=== PATIENT | female | born 1940 | race Caucasian/White ===

== ENCOUNTER 2017-05-31 11:33 | Emergency (ER) | payer OTHER, MEDICARE ==
[2017-05-31 11:47] VITALS: TEMP 98.4
[2017-05-31] MEDS ORDERED: NS 1,000 ML IV ONE (12:20)
--- NOTE | 2017-05-31 12:23 | EDPHY ---
H & P Stated Complaint: Nausea, abdo pain, diarrhea and rash - Possible reaction to chemo med. Time Seen by Provider: 05/31/17 12:09 HPI/ROS: CHIEF COMPLAINT: Weakness, loss of appetite, history of metastatic breast cancer HISTORY OF PRESENT ILLNESS: The patient presents to the ED with worsening weakness, loss of appetite, intermittent diarrhea and constipation. The patient is currently receiving oral chemotherapy for metastatic breast cancer. The patient is on Atenafor and Examestone. Additionally she takes losartan, Synthroid and Prilosec. The patient has been on her oral chemotherapy for approximately the past 6 weeks. She recently return to [place] from [place] where she did not have medical care. She reportedly had a fever last night to 102 degrees. The patient denies acute cough. She complains of generalized weakness and loss of appetite as her primary presenting symptom today. REVIEW OF SYSTEMS: A comprehensive 10 point review of systems is otherwise negative aside from elements mentioned in the history of present illness. Source: Patient Exam Limitations: No limitations - Personal History Current Tetanus Diphtheria and Acellular Pertussis (TDAP): Unsure - Medical/Surgical History Hx Asthma: No Hx Chronic Respiratory Disease: No Hx Diabetes: No Hx Cardiac Disease: No Hx Renal Disease: No Hx Cirrhosis: No Hx Alcoholism: No Hx HIV/AIDS: No Hx Splenectomy or Spleen Trauma: No Other PMH: HTN, Hysterectomy, breast augmentation - Breast CA - Social History Smoking Status: Former smoker - Physical Exam Exam: General Appearance: Alert, no distress Eyes: Pupils equal and round no pallor or injection ENT, Mouth: Mucous membranes moist Respiratory: There are no retractions, lungs are clear to auscultation Cardiovascular: Regular rate and rhythm Gastrointestinal: Abdomen is soft and nontender, no masses, bowel sounds normal Neurological: A&O, normal motor function, normal sensory exam, normal cranial nerves Skin: Warm and dry, no rashes Musculoskeletal: Neck is supple nontender Extremities: symmetrical, full range of motion Constitutional: Initial Vital Signs Temperature (C) 36.9 C 05/31/17 11:42 Heart Rate 118 H 05/31/17 11:42 Respiratory Rate 18 05/31/17 11:42 Blood Pressure 128/82 H 05/31/17 11:42 O2 Sat (%) 92 05/31/17 11:42 O2 Delivery Mode Room Air Allergies/Adverse Reactions: iopamidol [From Isovue-M] Allergy (Severe, Verified 04/03/15 18:04) Anaphylaxis lisinopril [Lisinopril] Allergy (Severe, Verified 04/03/15 18:04) Swelling/neck,face,throat azithromycin [From Zithromax Z-Cristi] Allergy (Intermediate, Verified 04/03/15 18: 04) Rash codeine [Codeine] Allergy (Intermediate, Verified 04/03/15 18:04) Vomiting erythromycin base [Erythromycin Base] Allergy (Intermediate, Verified 04/03/15 18:04) Other-Enter Comments meperidine HCl [From Demerol] Allergy (Intermediate, Verified 04/03/15 18:04) Vomiting Penicillins Allergy (Intermediate, Verified 04/03/15 18:04) Hives Home Medications: Medication Instructions Recorded Ascorbic Acid [Vitamin C 500 mg 1,000 mg PO DAILY 06/04/14 (*)] Aspirin [Aspirin 81mg (*)] 81 mg PO DAILY 06/04/14 Fexofenadine HCl [Brittanie Allergy] 60 mg PO DAILY PRN 06/04/14 Herbals/Supplements -Info Only 1 ea PO DAILY 06/04/14 Levothyroxine [Synthroid 112 mcg 112 mcg PO DAILY06 06/04/14 (*)] Magnesium Oxide [Magnesium Oxide 200 mg PO DAILY 06/04/14 400 mg (*)] Multivitamins [Multivitamin (*)] 1 each PO DAILY 06/04/14 [place]-3 Fatty Acids [Fish Oil 1000 1,000 mg PO DAILY 06/04/14 mg (*)] Calcium Carbonate [Oyster Shell 500 mg PO DAILY 04/03/15 Calcium 500 mg (*)] Cholecalciferol (Vitamin D3) 400 unit PO DAILY 04/03/15 [Delta D3] Ibuprofen [Motrin (*)] 600 mg PO TID PRN 04/03/15 Letrozole [Femara 2.5 mg (*)] 2.5 mg PO DAILY 04/03/15 Losartan Potassium [Cozaar] 100 mg PO DAILY 04/03/15 Ondansetron Odt [Zofran Odt] 4 mg PO Q4PRN PRN #20 tab 05/31/17 Medical Decision Making ED Course/Re-evaluation: I reviewed the patient's past medical records. She presents to the ED with symptoms consistent with dehydration with fatigue and loss of appetite. The patient did report a fever yesterday to 102 degrees. She is afebrile in the emergency department today. The patient's vital signs are stable. She is not hypoxemic. She has no acute respiratory complaints. The patient's CBC is within normal limits without evidence of neutropenia. The patient did have blood cultures x2 obtained. She was noted to have mild hyponatremia consistent with her clinical dehydration. The patient had an IV established. She received 2 L of normal saline and 4 mg of IV Zofran. I re-evaluated the patient at 1:50 p.m.. She is feeling better. We are still awaiting urinalysis. The patient's venous lactate is normal. Patient's urinalysis is obtained demonstrates no evidence of an infection. I spoke with her oncologist at the [facility]. He recommends having her withhold her oral chemo medications. They will follow up with her later this week. The patient will be discharged home with customary aftercare instructions and return precautions. Differential Diagnosis: Differential diagnosis considered includes neutropenic fever, dehydration, metabolic abnormality, urinary tract infection, medication side effect - Data Points Laboratory Results: Laboratory Results 05/31/17 12:35 05/31/17 12:35 05/31/17 05/31/17 05/31/17 14:20 12:35 12:35 WBC 6.09 10^3/uL 10^3/uL (3.80-9.50) RBC 4.74 10^6/uL 10^6/uL (4.18-5.33) Hgb 14.8 g/dL g/dL (12.6-16.3) Hct 42.1 % % (38.0-47.0) MCV 88.8 fL fL (81.5-99.8) MCH 31.2 pg pg (27.9-34.1) MCHC 35.2 g/dL g/dL (32.4-36.7) RDW 12.8 % % (11.5-15.2) Plt Count 222 10^3/uL 10^3/uL (150-400) MPV 10.0 fL fL (8.7-11.7) Neut % (Auto) 63.3 % % (39.3-74.2) Lymph % (Auto) 19.5 % % (15.0-45.0) [place] % (Auto) 11.5 % % (4.5-13.0) Eos % (Auto) 4.4 % % (0.6-7.6) Baso % (Auto) 1.1 % % (0.3-1.7) Nucleat RBC Rel Count 0.0 % % (0.0-0.2) Absolute Neuts (auto) 3.85 10^3/uL 10^3/uL (1.70-6.50) Absolute Lymphs (auto) 1.19 10^3/uL 10^3/uL (1.00-3.00) Absolute Monos (auto) 0.70 10^3/uL 10^3/uL (0.30-0.80) Absolute Eos (auto) 0.27 10^3/uL 10^3/uL (0.03-0.40) Absolute Basos (auto) 0.07 10^3/uL 10^3/uL (0.02-0.10) Absolute Nucleated RBC 0.00 10^3/uL 10^3/uL (0-0.01) Immature Gran % 0.2 % % (0.0-1.1) Immature Gran # 0.01 10^3/uL 10^3/uL (0.00-0.10) VBG Lactic Acid Sodium 128 mEq/L L mEq/L (134-144) Potassium 3.6 mEq/L mEq/L (3.5-5.2) Chloride 94 mEq/L L mEq/L (97-110) Carbon Dioxide 26 mEq/l mEq/l (22-31) Anion Gap 8 mEq/L mEq/L (8-16) BUN 11 mg/dL mg/dL (7-23) Creatinine 1.0 mg/dL mg/dL (0.6-1.0) Estimated GFR 54 Glucose 118 mg/dL H mg/dL (70-100) Calcium 9.4 mg/dL mg/dL (8.5-10.4) Total Bilirubin 1.0 mg/dL mg/dL (0.1-1.4) Conjugated Bilirubin 0.4 mg/dL mg/dL (0.0-0.5) Unconjugated Bilirubin 0.6 mg/dL mg/dL (0.0-1.1) AST 81 IU/L H IU/L (14-46) ALT 94 IU/L H IU/L (9-52) Alkaline Phosphatase 95 IU/L IU/L (38-126) Total Protein 6.2 g/dL L g/dL (6.3-8.2) Albumin 3.3 g/dL L g/dL (3.5-5.0) Urine RBC 25-50 /hpf H /hpf (0-3) Urine WBC 1-3 /hpf /hpf (0-3) Ur Epithelial Cells NONE SEEN /lpf /lpf (NONE-1+) Urine Mucus TRACE /lpf /lpf (NONE-1+) 05/31/17 12:33 WBC RBC Hgb Hct MCV MCH MCHC RDW Plt Count MPV Neut % (Auto) Lymph % (Auto) [place] % (Auto) Eos % (Auto) Baso % (Auto) Nucleat RBC Rel Count Absolute Neuts (auto) Absolute Lymphs (auto) Absolute Monos (auto) Absolute Eos (auto) Absolute Basos (auto) Absolute Nucleated RBC Immature Gran % Immature Gran # VBG Lactic Acid 1.4 mmol/L mmol/L (0.7-2.1) Sodium Potassium Chloride Carbon Dioxide Anion Gap BUN Creatinine Estimated GFR Glucose Calcium Total Bilirubin Conjugated Bilirubin Unconjugated Bilirubin AST ALT Alkaline Phosphatase Total Protein Albumin Urine RBC Urine WBC Ur Epithelial Cells Urine Mucus Medications Given: Discontinued Medications Sodium Chloride (Ns) 1,000 mls @ 0 mls/hr IV ONCE ONE; Wide Open PRN Reason: Protocol Stop: 05/31/17 12:21 Last Admin: 05/31/17 12:40 Dose: 1,000 mls Ondansetron HCl (Zofran) 4 mg IVP EDNOW ONE Stop: 05/31/17 12:36 Last Admin: 05/31/17 12:40 Dose: 4 mg Departure - Departure Disposition: Home, Routine, Self-Care Clinical Impression: BREAST CANCER, BILATERAL, Hyponatremia, Dehydration Condition: Good Instructions: Dehydration (ED) Additional Instructions: 1. Zofran as needed for nausea. 2. Return to the ED for any worsening symptoms, high fever, acute pain or other concerns. 3. Your oncologist does recommend holding her oral chemotherapy medications. Please contact their office to discuss resuming these medications. Referrals: Michael Pickens MD [Primary Care Provider] - As per Instructions
[2017-05-31] MEDS ORDERED: ONDANSETRON 4 MG/2 ML VIAL IVP ONE (12:35)
[2017-05-31 12:52] LABS: % IMMATURE GRANULYOCYTES 0.2 % (0.0-1.1); ABSOLUTE IMMATURE GRANULOCYTES 0.01 10^3/uL (0.00-0.10); ADD DIFF? NO; ADD MORPH? NO; ADD SCAN? NO; ATYPICAL LYMPHOCYTE FLAG 0 (0-99); FRAGMENT RBC FLAG 0 (0-99); HEMATOCRIT 42.1 % (38.0-47.0); HEMOGLOBIN 14.8 g/dL (12.6-16.3); LEFT SHIFT FLG 0 (0-99); LIPEMIA HEMOLYSIS FLAG 90 (0-99); MEAN CELL HEMOGLOBIN 31.2 pg (27.9-34.1); MEAN CELL HEMOGLOBIN CONCENTR. 35.2 g/dL (32.4-36.7); MEAN CELL VOLUME 88.8 fL (81.5-99.8); PLATELET CLUMPS FLAG 0 (0-99); PLATELET COUNT 222 10^3/uL (150-400); RED BLOOD CELL COUNT 4.74 10^6/uL (4.18-5.33); RED CELL DISTRIBUTION WIDTH 12.8 % (11.5-15.2)
[2017-05-31 13:14] LABS: ALANINE AMINOTRANSFERASE 94 IU/L (9-52); ALBUMIN 3.3 g/dL (3.5-5.0); ALKALINE PHOSPHATASE 95 IU/L (38-126); ANION GAP 8 mEq/L (8-16); ASPARTATE AMINOTRANSFERASE 81 IU/L (14-46); BILIRUBIN-CONJUGATED 0.4 mg/dL (0.0-0.5); BILIRUBIN-UNCONJUGATED 0.6 mg/dL (0.0-1.1); CALCIUM 9.4 mg/dL (8.5-10.4); CARBON DIOXIDE 26 mEq/l (22-31); CHLORIDE 94 mEq/L (97-110); GLOMERULAR FILTRATION RATE 54; GLUCOSE 118 mg/dL (70-100); POTASSIUM 3.6 mEq/L (3.5-5.2); SODIUM 128 mEq/L (134-144); TOTAL PROTEIN 6.2 g/dL (6.3-8.2)
[2017-05-31 14:32] LABS: MUCUS TRACE /lpf (NONE-1+); RBC,URINE 25-50 /hpf (0-3)
[2017-05-31 15:24] VITALS: BP 130/60; PULSE 107; RESP 20; O2SAT 88
== END 2017-05-31 15:23 | disposition home or self-care (01) ==
DX: E87.1 Hypo-osmolality and hyponatremia (principal); E86.0 Dehydration; E86.9 Volume depletion, unspecified; I10 Essential (primary) hypertension; Z79.82 Long term (current) use of aspirin; Z85.3 Personal history of malignant neoplasm of breast; Z87.891 Personal history of nicotine dependence
CPT/HCPCS: 96374; 99284; J2405

== ENCOUNTER 2017-06-07 22:53 | Observation (INO) | payer OTHER, MEDICARE ==
[2017-06-07 23:42] LABS: % IMMATURE GRANULYOCYTES 0.9 % (0.0-1.1); ABSOLUTE IMMATURE GRANULOCYTES 0.06 10^3/uL (0.00-0.10); ABSOLUTE NRBC COUNT 0.11 10^3/uL (0-0.01); ADD DIFF? NO; ADD MORPH? YES; ADD SCAN? NO; ATYPICAL LYMPHOCYTE FLAG 0 (0-99); FRAGMENT RBC FLAG 0 (0-99); HEMATOCRIT 36.2 % (38.0-47.0); HEMOGLOBIN 12.9 g/dL (12.6-16.3); LEFT SHIFT FLG 0 (0-99); LIPEMIA HEMOLYSIS FLAG 90 (0-99); MEAN CELL HEMOGLOBIN 31.1 pg (27.9-34.1); MEAN CELL HEMOGLOBIN CONCENTR. 35.6 g/dL (32.4-36.7); MEAN CELL VOLUME 87.2 fL (81.5-99.8); MEAN PLATELET VOLUME 9.8 fL (8.7-11.7); PLATELET CLUMPS FLAG 0 (0-99); PLATELET COUNT 289 10^3/uL (150-400); RED BLOOD CELL COUNT 4.15 10^6/uL (4.18-5.33); RED CELL DISTRIBUTION WIDTH 13.2 % (11.5-15.2)
--- NOTE | 2017-06-07 23:42 | CPEKG ---
Heart Rate: 97 RR Interval: 619 P-R Interval: 144 QRSD Interval: 86 QT Interval: 348 QTC Interval: 442 P [place]: 77 QRS [place]: 55 T Wave [place]: 39 EKG Severity - BORDERLINE ECG - EKG Impression: SINUS RHYTHM EKG Impression: LOW VOLTAGE THROUGHOUT EKG Impression: BORDERLINE T ABNORMALITIES, ANTERIOR LEADS Electronically Signed By: Simeon Bowens 08-Jun-2017 06:24:23
[2017-06-07 23:45] LABS: NRBC-AUTO% 1.7 % (0.0-0.2)
[2017-06-07 23:55] LABS: ALANINE AMINOTRANSFERASE 64 IU/L (9-52); ALKALINE PHOSPHATASE 98 IU/L (38-126); ANION GAP 10 mEq/L (8-16); ASPARTATE AMINOTRANSFERASE 53 IU/L (14-46); BILIRUBIN,TOTAL 1.2 mg/dL (0.1-1.4); CALCIUM 8.4 mg/dL (8.5-10.4); CARBON DIOXIDE 27 mEq/l (22-31); CHLORIDE 91 mEq/L (97-110); CREATININE 0.9 mg/dL (0.6-1.0); GLOMERULAR FILTRATION RATE > 60; GLUCOSE 132 mg/dL (70-100); POTASSIUM 3.4 mEq/L (3.5-5.2); SODIUM 128 mEq/L (134-144); TOTAL PROTEIN 5.2 g/dL (6.3-8.2)
[2017-06-08 00:06] LABS: TROPONIN I 0.064 ng/mL (0.000-0.034)
[2017-06-08 00:10] LABS: PLATELET ESTIMATE ADEQUATE (ADEQ); POLYCHROMASIA 1+
--- NOTE | 2017-06-08 00:14 | EDPHY ---
H & P Stated Complaint: SOB at night and weakness r Time Seen by Provider: 06/07/17 23:10 HPI/ROS: Chief Complaint: Fatigue, shortness of breath HPI: 76-year-old woman with metastatic breast cancer currently under treatment at the [facility]. Patient is presenting with fatigue for the last 3 weeks. Also having significant weakness and shortness of breath for the last week or so. She was seen in the emergency department last week. At that time she has diagnosed with some dehydration is also thought that she could be having some reaction to her medication. She was taken off of the Afinitor that is prescribed by her oncologist. She is continuing to take the Exomestane. The patient was seen by her oncologist last week. She is continuing to have worsening fatigue and is now having shortness of breath primarily at night. She has extreme fatigue walking to the bathroom and requires assistance getting back to bed. ROS: 10 point Review of Systems is negative except as noted in the HPI. PMH: Metastatic breast cancer, hypertension, hypothyroidism Social History: No smoking, rare alcohol, no recreational drug use Family History: non-contributory Physical Exam: Gen: Awake, Alert, No Distress HEENT: Nose: no rhinorrhea Eyes: PERRLA, EOMI Mouth: Moist mucosa Neck: Supple, no JVD Chest: nontender, lungs clear to auscultation Heart: S1, S2 normal, no murmur Abd: Soft, non-tender, no guarding Back: no CVA tenderness, no midline tenderness Ext: no edema, non-tender Skin: no rash Neuro: CN II-XII intact, Sensation grossly intact, Strength 5/5 in bilateral upper and lower extremities - Personal History Current Tetanus/Diphtheria Vaccine: Yes Current Tetanus Diphtheria and Acellular Pertussis (TDAP): Yes - Medical/Surgical History Hx Asthma: No Hx Chronic Respiratory Disease: No Hx Diabetes: No Hx Cardiac Disease: No Hx Renal Disease: No Hx Cirrhosis: No Hx Alcoholism: No Hx HIV/AIDS: No Hx Splenectomy or Spleen Trauma: No Other PMH: HTN, Hysterectomy, breast augmentation - Breast CA-mets to liver and bones, lymphedema - Social History Smoking Status: Former smoker Constitutional: Initial Vital Signs Temperature (C) 37.9 C 06/07/17 22:57 Heart Rate 110 H 06/07/17 22:57 Respiratory Rate 18 06/07/17 22:57 Blood Pressure 128/70 H 06/07/17 22:57 O2 Sat (%) 90 L 06/07/17 22:57 O2 Delivery Mode Room Air Allergies/Adverse Reactions: iopamidol [From Isovue-M] Allergy (Severe, Verified 06/07/17 23:01) Anaphylaxis lisinopril [Lisinopril] Allergy (Severe, Verified 06/07/17 23:01) Swelling/neck,face,throat azithromycin [From Zithromax Z-Cristi] Allergy (Intermediate, Verified 06/07/17 23: 01) Rash codeine [Codeine] Allergy (Intermediate, Verified 06/07/17 23:01) Vomiting erythromycin base [Erythromycin Base] Allergy (Intermediate, Verified 06/07/17 23:01) Other-Enter Comments meperidine HCl [From Demerol] Allergy (Intermediate, Verified 06/07/17 23:01) Vomiting Penicillins Allergy (Intermediate, Verified 06/07/17 23:01) Hives Iodine and Iodide Containing Produc Allergy (Verified 06/07/17 23:02) Home Medications: Medication Instructions Recorded Ascorbic Acid [Vitamin C 500 mg 1,000 mg PO DAILY 06/04/14 (*)] Aspirin [Aspirin 81mg (*)] 81 mg PO DAILY 06/04/14 Fexofenadine HCl [Brittanie Allergy] 60 mg PO DAILY PRN 06/04/14 Herbals/Supplements -Info Only 1 ea PO DAILY 06/04/14 Levothyroxine [Synthroid 112 mcg 112 mcg PO DAILY06 06/04/14 (*)] Magnesium Oxide [Magnesium Oxide 200 mg PO DAILY 06/04/14 400 mg (*)] Multivitamins [Multivitamin (*)] 1 each PO DAILY 06/04/14 [place]-3 Fatty Acids [Fish Oil 1000 1,000 mg PO DAILY 06/04/14 mg (*)] Calcium Carbonate [Oyster Shell 500 mg PO DAILY 04/03/15 Calcium 500 mg (*)] Cholecalciferol (Vitamin D3) 400 unit PO DAILY 04/03/15 [Delta D3] Ibuprofen [Motrin (*)] 600 mg PO TID PRN 04/03/15 Letrozole [Femara 2.5 mg (*)] 2.5 mg PO DAILY 04/03/15 Losartan Potassium [Cozaar] 100 mg PO DAILY 04/03/15 Ondansetron Odt [Zofran Odt] 4 mg PO Q4PRN PRN #20 tab 05/31/17 Medical Decision Making - Diagnostics EKG Interpretation: ECG time 11:40 p.m.. Sinus rhythm with a rate of 97, normal axis, low-voltage throat, normal intervals, she has T-wave inversions in V2 and V3. These are new compared to an ECG from 04/03/2015. ED Course/Re-evaluation: Patient noted to have a new ECG changes with T-wave inversions in V2 and V3. She also has an elevated D-dimer. I have discussed CT scanning of her chest. She states she has allergy to IV contrast dye for both CT and MRI which produces hives. She is refusing CT scan at this time. I have ordered a V/Q scan but has been told that this can only be obtained during daylight hours. Will plan to give her anticoagulation and admit overnight. Hospitalist has been paged. Troponin back and is now elevated. Discussed with Dr. Bautista, hospitalist. Will give a shot of Lovenox now. Will order ultrasounds of her legs now. Admit with plan for V/Q scan in the morning. - Data Points Laboratory Results: Laboratory Results 06/07/17 23:33 06/07/17 23:33 06/07/17 06/07/17 06/07/17 23:33 23:33 23:33 WBC 6.51 10^3/uL 10^3/uL (3.80-9.50) RBC 4.15 10^6/uL L 10^6/uL (4.18-5.33) Hgb 12.9 g/dL g/dL (12.6-16.3) Hct 36.2 % L % (38.0-47.0) MCV 87.2 fL fL (81.5-99.8) MCH 31.1 pg pg (27.9-34.1) MCHC 35.6 g/dL g/dL (32.4-36.7) RDW 13.2 % % (11.5-15.2) Plt Count 289 10^3/uL 10^3/uL (150-400) MPV 9.8 fL fL (8.7-11.7) Neut % (Auto) 60.5 % % (39.3-74.2) Lymph % (Auto) 18.6 % % (15.0-45.0) [place] % (Auto) 13.5 % H % (4.5-13.0) Eos % (Auto) 6.0 % % (0.6-7.6) Baso % (Auto) 0.5 % % (0.3-1.7) Nucleat RBC Rel Count 1.7 % H % (0.0-0.2) Absolute Neuts (auto) 3.94 10^3/uL 10^3/uL (1.70-6.50) Absolute Lymphs (auto) 1.21 10^3/uL 10^3/uL (1.00-3.00) Absolute Monos (auto) 0.88 10^3/uL H 10^3/uL (0.30-0.80) Absolute Eos (auto) 0.39 10^3/uL 10^3/uL (0.03-0.40) Absolute Basos (auto) 0.03 10^3/uL 10^3/uL (0.02-0.10) Absolute Nucleated RBC 0.11 10^3/uL H 10^3/uL (0-0.01) Immature Gran % 0.9 % % (0.0-1.1) Immature Gran # 0.06 10^3/uL 10^3/uL (0.00-0.10) Platelet Estimate ADEQUATE (ADEQ) Polychromasia 1+ H Smear Review By Pending D-Dimer 3.84 ug/mLFEU H ug/mLFEU (0.00-0.50) Sodium 128 mEq/L L mEq/L (134-144) Potassium 3.4 mEq/L L mEq/L (3.5-5.2) Chloride 91 mEq/L L mEq/L (97-110) Carbon Dioxide 27 mEq/l mEq/l (22-31) Anion Gap 10 mEq/L mEq/L (8-16) BUN 6 mg/dL L mg/dL (7-23) Creatinine 0.9 mg/dL mg/dL (0.6-1.0) Estimated GFR > 60 Glucose 132 mg/dL H mg/dL (70-100) Calcium 8.4 mg/dL L mg/dL (8.5-10.4) Total Bilirubin 1.2 mg/dL mg/dL (0.1-1.4) AST 53 IU/L H IU/L (14-46) ALT 64 IU/L H IU/L (9-52) Alkaline Phosphatase 98 IU/L IU/L (38-126) Troponin I 0.064 ng/mL H ng/mL (0.000-0.034) Total Protein 5.2 g/dL L g/dL (6.3-8.2) Albumin 3.0 g/dL L g/dL (3.5-5.0) Lipase 81 IU/L IU/L (23-300) Departure - Departure Disposition: [facility] Inpatient Acute Clinical Impression: Shortness of breath Condition: Fair Referrals: Michael Pickens MD [Primary Care Provider] - As per Instructions
[2017-06-08] MEDS ORDERED: ACETAMINOPHEN 325 MG TAB PO PRN (00:21)
[2017-06-08] MEDS ORDERED: ONDANSETRON 4 MG/2 ML VIAL IVP PRN (00:21)
[2017-06-08] MEDS ORDERED: ONDANSETRON DISINTEGRATING 4 MG TAB PO PRN ×2 (00:21→07:58)
[2017-06-08] MEDS ORDERED: ENOXAPARIN 80 MG/0.8 ML SYR SC ONE (00:28)
[2017-06-08] MEDS ORDERED: NS 500 ML IV ONE (01:31)
[2017-06-08] MEDS ORDERED: ALBUTEROL 3 ML DEYVIAL IH PRN (01:37)
--- NOTE | 2017-06-08 02:37 | PDGENHP ---
History and Physical - Chief Complaint Fatigue - History of Present Illness 76 yo F w/ metastatic breast CA, hypothyroid, and HTN presents with fatigue and SOB. Patient states she started two new medications for breast CA (Afinitor and Exemestane) about 2 months ago. One month ago she developed fatigue and stomach pain. As a result, the Afinitor was stopped 1 week ago as this was felt to be a drug side effect. During the last week she has continued to feel fatigued and also has began to notice intermittent shortness of breath improved by albuterol. It was the progressive fatigue that led her to come to the ED today. She denies chest pain, fevers, and chills. She has continued to have poor PO intake. History Information - Allergies/Home Medication List Allergies/Adverse Reactions: iopamidol [From Isovue-M] Allergy (Severe, Verified 06/07/17 23:01) Anaphylaxis lisinopril [Lisinopril] Allergy (Severe, Verified 06/07/17 23:01) Swelling/neck,face,throat azithromycin [From Zithromax Z-Cristi] Allergy (Intermediate, Verified 06/07/17 23: 01) Rash codeine [Codeine] Allergy (Intermediate, Verified 06/07/17 23:01) Vomiting erythromycin base [Erythromycin Base] Allergy (Intermediate, Verified 06/07/17 23:01) Other-Enter Comments meperidine HCl [From Demerol] Allergy (Intermediate, Verified 06/07/17 23:01) Vomiting Penicillins Allergy (Intermediate, Verified 06/07/17 23:01) Hives Iodine and Iodide Containing Produc Allergy (Verified 06/07/17 23:02) Home Medications: Ascorbic Acid [Vitamin C 500 mg (*)] 1,000 mg PO DAILY 06/04/14 [Last Taken ] Aspirin [Aspirin 81mg (*)] 81 mg PO DAILY 06/04/14 [Last Taken 04/02/15] Fexofenadine HCl [Brittanie Allergy] 60 mg PO DAILY PRN 06/04/14 [Last Taken 04/03] Herbals/Supplements -Info Only 1 ea PO DAILY 06/04/14 [Last Taken 06/10/14] Levothyroxine [Synthroid 112 mcg (*)] 112 mcg PO DAILY06 06/04/14 [Last Taken ] Magnesium Oxide [Magnesium Oxide 400 mg (*)] 200 mg PO DAILY 06/04/14 [Last Taken 04/02/15] Multivitamins [Multivitamin (*)] 1 each PO DAILY 06/04/14 [Last Taken 04/03/15] [place]-3 Fatty Acids [Fish Oil 1000 mg (*)] 1,000 mg PO DAILY 06/04/14 [Last Taken 04/03/15] Calcium Carbonate [Oyster Shell Calcium 500 mg (*)] 500 mg PO DAILY 04/03/15 [ Last Taken 04/02/15] Cholecalciferol (Vitamin D3) [Delta D3] 400 unit PO DAILY 04/03/15 [Last Taken 04/02/15] Ibuprofen [Motrin (*)] 600 mg PO TID PRN 04/03/15 [Last Taken Unknown] Letrozole [Femara 2.5 mg (*)] 2.5 mg PO DAILY 04/03/15 [Last Taken 04/03/15] Losartan Potassium [Cozaar] 100 mg PO DAILY 04/03/15 [Last Taken 04/03/15] I have personally reviewed and updated: family history, medical history - Past Medical History cancer (Metastatic breast (bone, liver)), hypertension - Family History Positive for: CAD Additional family history: UC - Social History Smoking Status: Former smoker Review of Systems Review of Systems: ROS: 10pt was reviewed & negative except for what was stated in HPI & below Physical Exam Physical Exam: Temp Pulse Resp BP Pulse Ox 37.9 C 90 22 H 132/84 H 95 06/07/17 22:57 06/08/17 01:28 06/08/17 01:28 06/08/17 01:28 06/08/17 01:28 O2 (L/minute) 2 Constitutional: no apparent distress, appears nourished Eyes: PERRL, EOMI Ears, Nose, Mouth, Throat: moist mucous membranes, no oral mucosal ulcers Cardiovascular: regular rate and rhythym, no murmur, rub, or gallop Respiratory: no respiratory distress, clear to auscultation Skin: warm, normal color Musculoskeletal: full muscle strength, no muscle tenderness Neurologic: AAOx3, CN II-XII Intact Psychiatric: interacting appropriately, not anxious Lab Data & Imaging Review 06/07/17 23:33 06/07/17 23:33 WBC 6.51 10^3/uL (3.80-9.50) 06/07/17 23:33 RBC 4.15 10^6/uL (4.18-5.33) L 06/07/17 23:33 Hgb 12.9 g/dL (12.6-16.3) 06/07/17 23:33 Hct 36.2 % (38.0-47.0) L 06/07/17 23: MCV 87.2 fL (81.5-99.8) 06/07/17 23: MCH 31.1 pg (27.9-34.1) 06/07/17 23: MCHC 35.6 g/dL (32.4-36.7) 06/07/17 23: RDW 13.2 % (11.5-15.2) 06/07/17 23:33 Plt Count 289 10^3/uL (150-400) 06/07/17 23: MPV 9.8 fL (8.7-11.7) 06/07/17 23:33 Neut % (Auto) 60.5 % (39.3-74.2) 06/07/17 23:33 Lymph % (Auto) 18.6 % (15.0-45.0) 06/07/17 23:33 [place] % (Auto) 13.5 % (4.5-13.0) H 06/07/17 23:33 Eos % (Auto) 6.0 % (0.6-7.6) 06/07/17: Baso % (Auto) 0.5 % (0.3-1.7) 06/07/17 23:33 Nucleat RBC Rel Count 1.7 % (0.0-0.2) H 06/07/17 23:33 Absolute Neuts (auto) 3.94 10^3/uL (1.70-6.50) 06/07/17 23:33 Absolute Lymphs (auto) 1.21 10^3/uL (1.00-3.00) 06/07/17 23:33 Absolute Monos (auto) 0.88 10^3/uL (0.30-0.80) H 06/07/17 23:33 Absolute Eos (auto) 0.39 10^3/uL (0.03-0.40) 06/07/17 23:33 Absolute Basos (auto) 0.03 10^3/uL (0.02-0.10) 06/07/17 23:33 Absolute Nucleated RBC 0.11 10^3/uL (0-0.01) H 06/07/17 23:33 Immature Gran % 0.9 % (0.0-1.1) 06/07/17 23: Immature Gran # 0.06 10^3/uL (0.00-0.10) 06/07/17 23:33 Platelet Estimate ADEQUATE (ADEQ) 06/07/17 23:33 Polychromasia 1+ H 06/07/17 23:33 D-Dimer 3.84 ug/mLFEU (0.00-0.50) H 06/07/17 23:33 Sodium 128 mEq/L (134-144) L 06/07/17 23:33 Potassium 3.4 mEq/L (3.5-5.2) L 06/07/17 23:33 Chloride 91 mEq/L (97-110) L 06/07/17 23:33 Carbon Dioxide 27 mEq/l (22-31) 06/07/17 23:33 Anion Gap 10 mEq/L (8-16) 06/07/17 23:33 BUN 6 mg/dL (7-23) L 06/07/17 23:33 Creatinine 0.9 mg/dL (0.6-1.0) 06/07/17 23:33 Estimated GFR > 60 06/07/17 23:33 Glucose 132 mg/dL (70-100) H 06/07/17 23:33 Calcium 8.4 mg/dL (8.5-10.4) L 06/07/17 23:33 Total Bilirubin 1.2 mg/dL (0.1-1.4) 06/07/17 23:33 AST 53 IU/L (14-46) H 06/07/17 23:33 ALT 64 IU/L (9-52) H 06/07/17 23:33 Alkaline Phosphatase 98 IU/L (38-126) 06/07/17 23:33 Troponin I 0.064 ng/mL (0.000-0.034) H 06/07/17 23:33 Total Protein 5.2 g/dL (6.3-8.2) L 06/07/17 23:33 Albumin 3.0 g/dL (3.5-5.0) L 06/07/17 23:33 Lipase 81 IU/L (23-300) 06/07/17 23:33 Imaging Review: B/l LE U/S without evidence of DVT. CXR with small b/l pleural effusions and atelectasis. Visualized and Interpreted EKG results: Yes EKG Interpretation: Positive for: normal sinsus rhythm, T waves inversion (V1-V3 ) Assessment & Plan Assessment: 76 yo F w/ hypothyroid, HTN, and metastatic breast CA presents with subacute fatigue and SOB. Plan: 1. Subacute fatigue, SOB - Patient states that her symptoms started a few weeks after starting new cancer medications (Afinitor, Exemestane), but have worsened over the last week despite stopping Afinitor. Fatigue is listed on both these medications side effects, which could be explanatory in addition to contributions from hyponatremia and poor PO intake. However, noting mild hypoxia , small pleural effusions, and elevated D-dimer, reasonable to investigate other etiologies such as heart failure (low incidence Exemestane side-effect) and PE (she has contrast allergy, b/l LE US negative). - Gentle IVF to treat dehydration - TTE to evaluate cardiac function - VQ scan ordered to evaluate for PE noting contrast allergy, will hold off on empiric anticoagulation noting clinical stability - PT, OT, nutrition consults - Check TSH 2. AHRF - Mild, requiring 2 L/min via NC to maintain O2 sats >90%. Could simply be 2/2 atelectasis in setting of recent poor mobility, but will investigate other etiologies as above with TTE and VQ scan. 3. Hyponatremia - Has prior hx of this, with most recent value of 128 one week prior to admission. I suspect at least some hypovolemic component noting poor PO intake. - 500 mL NS and recheck BMP in AM - Will check [place] and OSMs 4. Transaminitis - Mild, suspect related to new medications vs. metastases. 5. Hypothyroid - Will check TSH 6. HTN - On Losartan as outpatient. Diet - Regular Code - Full Ppx - SCDs Dispo - Admit to observation status
[2017-06-08 05:38] LABS: ABSOLUTE IMMATURE GRANULOCYTES 0.06 10^3/uL (0.00-0.10); ADD DIFF? NO; ADD MORPH? YES; ADD SCAN? NO; ATYPICAL LYMPHOCYTE FLAG 0 (0-99); FRAGMENT RBC FLAG 0 (0-99); HEMATOCRIT 35.2 % (38.0-47.0); HEMOGLOBIN 12.3 g/dL (12.6-16.3); LEFT SHIFT FLG 0 (0-99); LIPEMIA HEMOLYSIS FLAG 90 (0-99); MEAN CELL HEMOGLOBIN 30.9 pg (27.9-34.1); MEAN CELL HEMOGLOBIN CONCENTR. 34.9 g/dL (32.4-36.7); MEAN CELL VOLUME 88.4 fL (81.5-99.8); MEAN PLATELET VOLUME 9.8 fL (8.7-11.7); PLATELET CLUMPS FLAG 20 (0-99); PLATELET COUNT 266 10^3/uL (150-400); RED BLOOD CELL COUNT 3.98 10^6/uL (4.18-5.33); RED CELL DISTRIBUTION WIDTH 13.2 % (11.5-15.2)
[2017-06-08 05:43] LABS: NRBC-AUTO% 1.7 % (0.0-0.2)
[2017-06-08 05:46] LABS: ANION GAP 9 mEq/L (8-16); CALCIUM 8.4 mg/dL (8.5-10.4); CARBON DIOXIDE 28 mEq/l (22-31); CHLORIDE 95 mEq/L (97-110); CREATININE 0.9 mg/dL (0.6-1.0); GLOMERULAR FILTRATION RATE > 60; GLUCOSE 98 mg/dL (70-100); POTASSIUM 4.2 mEq/L (3.5-5.2); SODIUM 132 mEq/L (134-144)
[2017-06-08 05:58] LABS: TROPONIN I 0.058 ng/mL (0.000-0.034)
[2017-06-08 06:53] LABS: MICROCYTES 1+; PLATELET ESTIMATE ADEQUATE (ADEQ); POLYCHROMASIA 2+
[2017-06-08 08:31] VITALS: RESP 20
[2017-06-08] MEDS ORDERED: CALCIUM CARBONATE 500 MG TAB PO SCH (09:00)
[2017-06-08] MEDS ORDERED: ASPIRIN 81 MG CHEWABLE TAB PO SCH (09:00)
[2017-06-08] MEDS ORDERED: MAGNESIUM OXIDE 400 MG TAB PO SCH (09:00)
[2017-06-08] MEDS ORDERED: Herbals/Supplements -Info Only PO SCH (09:00)
[2017-06-08] MEDS ORDERED: OMEGA-3 FATTY ACIDS 1,000 MG CAP PO SCH (09:00)
[2017-06-08] MEDS ORDERED: LETROZOLE 2.5 MG TAB PO SCH (09:00)
[2017-06-08] MEDS ORDERED: NON-FORMULARY NEW DRUG (Losartan Potassium [Cozaar] 100 MG) PO SCH (09:00)
[2017-06-08] MEDS ORDERED: ASCORBIC ACID 500 MG TAB PO SCH (09:00)
[2017-06-08] MEDS ORDERED: MULTIVITAMINS 1 EACH TAB PO SCH (09:00)
[2017-06-08] MEDS ORDERED: CHOLECALCIFEROL 400 UNIT PO SCH (09:00)
[2017-06-08] MEDS ORDERED: ALBUTEROL 60 PUFFS/8 GM MDI IH PRN (09:56)
[2017-06-08] MEDS ORDERED: EXEMESTANE 25 MG TAB PO SCH (10:00)
--- NOTE | 2017-06-08 10:05 | HOSPPROG ---
Hospitalist Progress Note Assessment/Plan: 76 yo F w/ hypothyroid, HTN, and metastatic breast CA presents with subacute fatigue and SOB. She was admitted earlier by Dr Aleman. Came by to follow up iwth her. * fatigue with shortness of breath -recently started on new cancer medications -the side effect of both these medications is fatigue -D-dimer is elevated but patient has allergies to contrast dye -V/Q scan ordered -TSH is stable -will also investigate any etiology of heart failure. Will check an echo -patient has some small pleural effusions which may be contributing to her shortness of breath -ultrasound to lower extremities is negative for a DVT * AHRF - Mild, requiring 2 L/min via NC to maintain O2 sats >90%. Could simply be 2/2 atelectasis in setting of recent poor mobility, but will investigate other etiologies as above with TTE and VQ scan. * Hyponatremia - Has prior hx of this, with most recent value of 128 one week prior to admission. I suspect at least some hypovolemic component noting poor PO intake. - 500 mL NS and recheck BMP in AM - Will check [place] and OSMs * elevation in troponin -could be demand ischemia will follow the echocardiogram * transaminitis -possibly related to new medications * hypothyroidism -TSH stable * hypertension -bp stable *plan: f/u with echo and V/Q scan Subjective: Paz is anxious about having some diarrhea/ cont to c/o shortness of breath. Objective: Vital Signs Temp Pulse Resp BP Pulse Ox 37 C 94 20 112/66 91 L 06/08/17 08:00 06/08/17 08:00 06/08/17 08:00 06/08/17 08:00 06/08/17 08:00 Laboratory Results 06/08/17 05:10 06/08/17 05:10 06/07/17 06/08/17 06/09/17 05:59 05:59 05:59 Intake Total 200 Output Total 425 Balance -225 - Physical Exam Constitutional: appears nourished, not in pain Eyes: PERRL Ears, Nose, Mouth, Throat: hearing normal Cardiovascular: regular rate and rhythym Respiratory: no respiratory distress, reduced air movement (bases, mainly right base) Skin: warm Musculoskeletal: no muscle tenderness Neurologic: AAOx3 Psychiatric: interacting appropriately ICD10 Worksheet Patient Problems: Problems Problem Status Onset Shortness of breath Acute BREAST CANCER, BILATERAL Acute Cough Acute Hypertension Acute Hypothyroid Acute
[2017-06-08] MEDS ORDERED: LOSARTAN PO SCH (10:30)
[2017-06-08] MEDS ORDERED: HYDROCHLOROTHIAZIDE PO SCH (10:30)
--- NOTE | 2017-06-08 14:22 | PDHOMEO2F ---
Home Oxygen Face to Face Home Orders: I certify that a physician or a nurse practitioner or physician's catering assistant has had a [id number] encounter with this patient on the date of this order due to the diagnosis listed, which relates to the primary reason the patient requires home oxygen. Alternative treatments have been tried, or considered, and deemed ineffective. It is anticipated that supplemental oxygen will result in improvement with treatment. Home oxygen qualifying diagnosis: bilateral pleural effusions SpO2 on room air (%): 86% Frequency of home oxygen needed: continuous Home oxygen liters per minute: 2 Home oxygen delivery device: nasal cannula Concentrator: Yes E-tanks for mobility and back up: Yes If ordering portable O2, is the patient mobile in the home?: Yes I certify that, based on these findings, the home oxygen is medically necessary for this patient for the following length of time. Length of time home oxygen needed: 99 years
--- NOTE | 2017-06-08 15:18 | ECHO ---
[email or web address] [address] [address] Main: [phone] Fax: Transthoracic Echocardiogram Name: SMITH CHESTER MR#: [id number] Study Date: 06/08/2017 Study Time: 08:42 AM Date of : 1940 Age: 76 year(s) Height: 160 cm (63 in.) Weight: 68.04 kg (150 lb.) BSA: 1.71 m2 Gender: Female Examination: Echo Indication: Subacute fatigue/SOB, History stage IV breast CA Image Quality: Contrast: Requested by: Quinton Brothers BP: / Heart Rate: Rhythm: Indication: Subacute fatigue/SOB, History stage IV breast CA Procedure Staff Communication Manager: Nicole Alberto Physician: Krish Perry Requesting Provider: Conclusions: The ejection fraction is estimated to be 70-75 %. Diastolic dysfunction is present. . Trivial mitral valve regurgitation. Posterior mitral leaflet is calcific.. Mildly calcific NCC of the aortic valve.. Small to moderate pericardial effusion. Measurements: Chambers Valvular Assessment AV/MV Valvular Assessment TV/PV Normal Normal Normal Name Value Range Name Value Range Name Value Range Ao Heena (MM): 3.0 cm (2.2 cm-3.7 AV Vmax: 1.39 m/s (1 m/s-1.7 TR Vmax: 3.01 mm/s ( - ) cm) m/s) TR PGmax: 36 mmHg ( - ) IVSd (2D): 0.6 cm (0.6 cm-1.1 AV maxP mmHg ( - ) syst. PAP: 41 mmHg ( - ) cm) MV E Vmax: 0.95 m/s ( - ) LVDd (2D): 4.0 cm (3.9 cm-5.3 MV A Vmax: 1.51 m/s ( - ) cm) MV E/A: 0.63 ( - ) LVDs (2D): 2.5 cm (2.1 cm-4 cm) LVPWd (2D): 0.7 cm ( - ) LVEF (2D): 69 (>=54 %) EF Range: 70-75 % Continued Measurements: Chambers Valvular Assessment AV/MV Valvular Assessment TV/PV Name Value Name Value Name Value LADs: 2.8 cm MV E' Septal: 0.04 m/s CVP (est.): 5 mmHg LADs Lon.7 cm MV E/E' Septal: 24.40 Patient: SMITH CHESTER Study Date: 06/08/2017 Page 1 of 2 08:42 AM LA Area: 14.0 cm2 MV E/E' Lateral: 20.80 Findings: Left Ventricle: Normal size left ventricle. Global hypercontractility of the left ventricle. The ejection fraction is estimated to be 70-75 %. No regional wall motion abnormality. Diastolic dysfunction is present. . Right Ventricle: Normal size right ventricle. Left Atrium: The left atrium is normal in size. Right Atrium: The right atrium is normal in size. Mitral Valve: Trivial mitral valve regurgitation. Posterior mitral leaflet is calcific.. Aortic Valve: The aortic valve is tri-leaflet. Mildly calcific NCC of the aortic valve.. Tricuspid Valve: The tricuspid valve appears normal. Mild to moderate tricuspid valve regurgitation. Pericardium: Small to moderate pericardial effusion. No echocardiographic evidence of hemodynamic compromise. Slight RA collapse.. (No Signature Object) Patient: SMITH CHESTER Study Date: 06/08/2017 Page 2 of 2 08:42 AM [id number]
[2017-06-08 16:02] VITALS: PULSE 84; O2SAT 95
[2017-06-08 16:08] VITALS: BP 118/80; TEMP 98.6
--- NOTE | 2017-06-08 17:23 | GDS ---
[f rep st] DISCHARGE SUMMARY DISCHARGE DIAGNOSES: 1. Fatigue with shortness of breath. 2. Acute hypoxemic respiratory failure. 3. Hyponatremia. 4. Elevated troponin. 5. Transaminitis. 6. Hypothyroidism. 7. Hypertension. HISTORY: The patient is a 76-year-old female with history of metastatic breast cancer, hypothyroidism, and hypertension. She presented to the emergency room with fatigue and shortness of breath. She started 2 medications for breast cancer about 2 months ago. One month ago, she developed fatigue and stomach pain. As a result, the Afinitor was stopped 1 week ago, as this was felt to be a side effect of the drug. During the last week, she continued to feel fatigued and she also noticed intermittent shortness of breath. She was admitted for further evaluation. She had an elevated D-dimer. She is severely allergic to the dye used in the CTA. A ventilation perfusion lung scan was performed which showed low probability for a pulmonary artery embolism. An echocardiogram was performed, which noted that her EF is 70%-75%. She has no regional wall abnormality. She has diastolic dysfunction. She has a posterior mitral leaflet that is calcified. She has a small to moderate pericardial effusion. She has slight RA collapse. In addition she had an ultrasound performed of her lower extremities. This was negative for DVT. Today, she is feeling better. She is anxious to return back to her home. She lives above the [facility]. Her oxygen levels are low with activity. She will be discharged home on oxygen. Will have her follow up with her primary care provider for further evaluation. HOSPITAL COURSE BY PROBLEM: 1. Fatigue with shortness of breath. I suspect mainly this is secondary to bilateral pleural effusions. In addition, she has a remote history of smoking. She could have developed some underlying COPD which would need further evaluation. 2. Acute hypoxemic respiratory failure. This is mild. She has been requiring 2 L. It could be also secondary to atelectasis. V/Q scan does not indicate PE. 3. Hyponatremia. Sodium level is 132. This improved with hydration. She is feeling markedly better. She suspects that she may be dehydrated. 4. Elevation of troponin. This is likely demand ischemia due to being hypoxic. She has no chest pain. EKG is sinus rhythm. Echocardiogram does not show anything acute. 5. Transaminitis. This is possibly related to her new medications. Further follow up with the PCP. 6. Hypothyroidism. TSH is stable. 7. Hypertension. Blood pressure is stable. DISCHARGE CONDITION: Stable. Blood pressure is 112/66, O2 saturation on 2 L are 97%, respiratory rate is 20, heart rate is 87, temperature is 36.7 Celsius. MEDICATIONS AT DISCHARGE: Please see the EMR. DISCHARGE INSTRUCTIONS: 1. Recommending she follow up with a sales and marketing associate. She will need a repeat echo to follow her pericardial effusion. 2. Wear her oxygen around the clock. 3. To get a repeat chest x-ray to be sure of resolution of the pericardial effusion. 4. Recommend she take copies of her echo, V/Q scan and chest x-ray to follow up with her oncologist in the [place] area. /[id number]/MODL MTDD
[2017-06-09] MEDS ORDERED: LEVOTHYROXINE 112 MCG TAB PO SCH (06:00)
--- NOTE | 2017-06-09 16:54 | ASDISCHSUM ---
Discharge Information Plan Status: Medically Cleared to Leave: Discharge Date:06/08/2017 05:10 PM CM D/C Disposition: ADT D/C Disposition:Home, Routine, Self-Care Projected Discharge Date:06/08/2017 05:10 PM Transportation at D/C: Discharge Delay Reason: Follow-Up Date:06/08/2017 05:10 PM Discharge Slot: Final Diagnosis: Placement Information Patient Contact Information Contact Name:KATHLEEN Relationship:Life Partner Address:[address] [place] [address] City:[place] Alternate Phone: [facility]/Zip Code:[place] [address] Email: Financial Information Financial Class: Primary Plan Desc:MEDICARE OUTPATIENT Primary Plan Number:[id number] Secondary Plan Desc:[employer]/MDR SUPPLEMENT Secondary Plan Number:[id number] Assessment Information Intervention Information Intervention Type:*JESUS-Signed Date of Service:06/08/2017 09:41 AM Patient Type:Observation Staff Member:Janine Santizo Hours: Discipline: Severity: Comment:
== END 2017-06-08 17:10 | disposition home or self-care (01) ==
LOC: F3E 06-08 01:08
PROVIDERS: ADMIT Student in an Organized Health Care Education/Training Program; ATTEND Internal Medicine
DX: R53.83 Other fatigue (principal); J96.01 Acute respiratory failure with hypoxia; E87.1 Hypo-osmolality and hyponatremia; R79.9 Abnormal finding of blood chemistry, unspecified; E86.0 Dehydration; R74.0 Nonspecific elevation of levels of transaminase and lactic acid dehydrogenase [LDH]; J90 Pleural effusion, not elsewhere classified; E03.9 Hypothyroidism, unspecified; T45.1X5D Adverse effect of antineoplastic and immunosuppressive drugs, subsequent encounter; C50.919 Malignant neoplasm of unspecified site of unspecified female breast; I10 Essential (primary) hypertension; Z87.891 Personal history of nicotine dependence; Z82.49 Family history of ischemic heart disease and other diseases of the circulatory system; Z88.0 Allergy status to penicillin; Z91.041 Radiographic dye allergy status
CPT/HCPCS: 71020; 78582; 93005; 93306; 93970; 99285; A9540; A9558; G0378; J1650

== ENCOUNTER 2017-07-09 07:00 | Emergency (ER) | payer OTHER, MEDICARE ==
--- NOTE | 2017-07-09 07:28 | EDPHY ---
HPI/HX/ROS/PE/MDM Narrative: CHIEF COMPLAINT: Right thigh pain HPI: The patient is a 76 y/o female with history of metastatic breast cancer and hypertension arriving with her complaining of aching right thigh pain that woke her from sleep early this morning. Her pain is located along her anterior thigh and not significantly aggravated by moving, though walking through the parking lot into the ED was painful. She was admitted here one month ago with similar symptoms and bilateral lower extremity ultrasounds were negative for DVT and an NM lung perfusion study did not indicate a PE at that time. She has known metastases to bone and liver and started a new chemotherapy , Xeloda, two weeks ago. She denies fever or chills at home, shortness of breath , or other acute symptoms. She has not taken anything for her pain. REVIEW OF SYSTEMS: Aside from elements discussed in the HPI, a comprehensive 10-point review of systems was reviewed and is negative. PMH: Breast cancer metastasized to bone and liver - Xeloda; on home O2 while at altitude; hypertension; transaminitis, hypothyroidism Prior medical records reviewed included admission 06/08/17 for shortness of breath. SOCIAL HISTORY: Lives near [place]. at bedside. Oncologist: L[place] PHYSICAL EXAM: General:Patient is alert, in no acute distress. ENT:Eyes are normal to inspection. ENT inspection normal. Neck: Normal inspection. Full range of motion. Respiratory:No respiratory distress. Breath sounds normal bilaterally. Cardiovascular: Regular rate and rhythm. Strong peripheral pulses. Normal cap refill. Abdomen:The abdomen is nontender to palpation. There are no peritoneal signs. Back: Normal to inspection. No tenderness to palpation. Skin: Normal color. No rash. Warm and dry. Extremities: Normal appearance. Full range of motion. Neuro: Oriented x3. Normal motor function. Normal sensory function. ED Course: This is a 76 y/o female with active metastatic breast cancer who presents with acute right anterior thigh pain that woke her from sleep early this morning. She has no associated respiratory or neuro symptoms. She is non-tender over the site and has no trauma or skin changes on exam. Plan for extremity US to rule out DVT and femur x-ray to rule out pathologic fracture. She declines pain medication at this time. Her US shows no evidence of DVT. Her femur x-ray shows a sclerotic bone lesion in her femur. I discussed these results with the patient. She has pain medication available at home. She will follow up with her PCP and oncologist as needed. Return precautions discussed. - Data Points Imaging Results: Imaging Impressions Femur X-Ray 07/09/17 07:28 Impression: Sclerotic bone metastasis. No pathologic fracture. Extremity Venous Study 07/09/17 07:29 Impression: Negative. No deep venous thrombosis. Findings discussed with Emergency Department physician, Damian Carney M.D. at 8:35 a.m. on July 09, 2017. Imaging: Discussed imaging studies w/ on call pharmacy technician Radiologist Laboratory Results: Laboratory Results 07/09/17 07:51 07/09/17 07:51 07/09/17 07/09/17 07:51 07:51 WBC 4.70 10^3/uL 10^3/uL (3.80-9.50) RBC 3.95 10^6/uL L 10^6/uL (4.18-5.33) Hgb 12.4 g/dL L g/dL (12.6-16.3) Hct 35.3 % L % (38.0-47.0) MCV 89.4 fL fL (81.5-99.8) MCH 31.4 pg pg (27.9-34.1) MCHC 35.1 g/dL g/dL (32.4-36.7) RDW 16.9 % H % (11.5-15.2) Plt Count 303 10^3/uL 10^3/uL (150-400) MPV 8.9 fL fL (8.7-11.7) Neut % (Auto) 78.1 % H % (39.3-74.2) Lymph % (Auto) 16.6 % % (15.0-45.0) [place] % (Auto) 3.6 % L % (4.5-13.0) Eos % (Auto) 1.3 % % (0.6-7.6) Baso % (Auto) 0.2 % L % (0.3-1.7) Nucleat RBC Rel Count 0.0 % % (0.0-0.2) Absolute Neuts (auto) 3.67 10^3/uL 10^3/uL (1.70-6.50) Absolute Lymphs (auto) 0.78 10^3/uL L 10^3/uL (1.00-3.00) Absolute Monos (auto) 0.17 10^3/uL L 10^3/uL (0.30-0.80) Absolute Eos (auto) 0.06 10^3/uL 10^3/uL (0.03-0.40) Absolute Basos (auto) 0.01 10^3/uL L 10^3/uL (0.02-0.10) Absolute Nucleated RBC 0.00 10^3/uL 10^3/uL (0-0.01) Immature Gran % 0.2 % % (0.0-1.1) Immature Gran # 0.01 10^3/uL 10^3/uL (0.00-0.10) Sodium 130 mEq/L L mEq/L (134-144) Potassium 4.0 mEq/L mEq/L (3.5-5.2) Chloride 97 mEq/L mEq/L (97-110) Carbon Dioxide 28 mEq/l mEq/l (22-31) Anion Gap 5 mEq/L L mEq/L (8-16) BUN 18 mg/dL mg/dL (7-23) Creatinine 1.0 mg/dL mg/dL (0.6-1.0) Estimated GFR 54 Glucose 98 mg/dL mg/dL (70-100) Calcium 8.6 mg/dL mg/dL (8.5-10.4) General Initial Vital Signs: Initial Vital Signs Temperature (C) 37.9 C 07/09/17 07:07 Heart Rate 115 H 07/09/17 07:07 O2 Sat (%) 91 L 07/09/17 07:07 O2 Delivery Mode Room Air Allergies/Adverse Reactions: iopamidol [From Isovue-M] Allergy (Severe, Verified 07/09/17 07:05) Anaphylaxis lisinopril [Lisinopril] Allergy (Severe, Verified 07/09/17 07:05) Swelling/neck,face,throat azithromycin [From Zithromax Z-Cristi] Allergy (Intermediate, Verified 07/09/17 07: 05) Rash codeine [Codeine] Allergy (Intermediate, Verified 07/09/17 07:05) Vomiting erythromycin base [Erythromycin Base] Allergy (Intermediate, Verified 07/09/17 07:05) Other-Enter Comments meperidine HCl [From Demerol] Allergy (Intermediate, Verified 07/09/17 07:05) Vomiting Penicillins Allergy (Intermediate, Verified 07/09/17 07:05) Hives everolimus [From Afinitor] Allergy (Verified 07/09/17 07:05) Hives Iodine and Iodide Containing Produc Allergy (Verified 07/09/17 07:05) Home Medications: Medication Instructions Recorded Ascorbic Acid [Vitamin C 500 mg 1,000 mg PO DAILY 06/04/14 (*)] Aspirin [Aspirin 81mg (*)] 81 mg PO DAILY 06/04/14 Fexofenadine HCl [Brittanie Allergy] 60 mg PO DAILY PRN 06/04/14 Levothyroxine [Synthroid 112 mcg 112 mcg PO DAILY06 06/04/14 (*)] Multivitamins [Multivitamin (*)] 1 each PO DAILY 06/04/14 [place]-3 Fatty Acids [Fish Oil 1000 1,000 mg PO DAILY 06/04/14 mg (*)] Calcium Carbonate [Oyster Shell 500 mg PO DAILY 04/03/15 Calcium 500 mg (*)] Albuterol [Proventil Inhaler HFA 1 - 2 puffs IH DAILY PRN 06/08/17 (*)] Losartan/Hydrochlorothiazide 1 each PO DAILY 06/08/17 [Hyzaar 100-12.5 Tablet] Xeloda 07/09/17 Zofran 07/09/17 Departure - Departure Disposition: Home, Routine, Self-Care Clinical Impression: Thigh pain Qualifiers: Laterality: right Qualified Code(s): M79.651 - Pain in right thigh Condition: Good Instructions: Leg Pain (ED) Additional Instructions: Follow up with your primary care provider and oncologist as needed. Return to the ED for severe worsening pain, weakness or numbness in your leg, shortness of breath, or other worsening of condition. Referrals: Michael Pickens MD [Primary Care Provider] - As per Instructions Report Scribed for: Damian Carney Report Scribed by: Mary Grace Thornton Date of Report: 07/09/17 Time of Report: 07:29 Physician Review and Approval Statement: Portions of this note were transcribed by an ED scribe. I personally performed the history, physical exam, and medical decision making; and confirm the accuracy of the information in the transcribed note.
[2017-07-09 07:59] LABS: % IMMATURE GRANULYOCYTES 0.2 % (0.0-1.1); ABSOLUTE IMMATURE GRANULOCYTES 0.01 10^3/uL (0.00-0.10); ADD DIFF? NO; ADD MORPH? NO; ADD SCAN? NO; ATYPICAL LYMPHOCYTE FLAG 0 (0-99); FRAGMENT RBC FLAG 0 (0-99); HEMATOCRIT 35.3 % (38.0-47.0); HEMOGLOBIN 12.4 g/dL (12.6-16.3); LEFT SHIFT FLG 0 (0-99); LIPEMIA HEMOLYSIS FLAG 90 (0-99); MEAN CELL HEMOGLOBIN 31.4 pg (27.9-34.1); MEAN CELL HEMOGLOBIN CONCENTR. 35.1 g/dL (32.4-36.7); MEAN CELL VOLUME 89.4 fL (81.5-99.8); MEAN PLATELET VOLUME 8.9 fL (8.7-11.7); PLATELET CLUMPS FLAG 0 (0-99); PLATELET COUNT 303 10^3/uL (150-400); RED BLOOD CELL COUNT 3.95 10^6/uL (4.18-5.33); RED CELL DISTRIBUTION WIDTH 16.9 % (11.5-15.2)
[2017-07-09 08:10] LABS: ANION GAP 5 mEq/L (8-16); CALCIUM 8.6 mg/dL (8.5-10.4); CARBON DIOXIDE 28 mEq/l (22-31); CHLORIDE 97 mEq/L (97-110); GLOMERULAR FILTRATION RATE 54; GLUCOSE 98 mg/dL (70-100); SODIUM 130 mEq/L (134-144)
[2017-07-09 09:04] VITALS: BP 122/69; PULSE 78; RESP 16; TEMP 99.3; O2SAT 94
== END 2017-07-09 09:02 | disposition home or self-care (01) ==
DX: M79.651 Pain in right thigh (principal); I10 Essential (primary) hypertension; Z85.3 Personal history of malignant neoplasm of breast; Z79.82 Long term (current) use of aspirin

== ENCOUNTER 2018-05-02 23:54 | Observation (INO) | payer OTHER, MEDICARE ==
[2018-05-03] MEDS ORDERED: NS 1,000 ML IV ONE ×2 (00:06→02:17)
--- NOTE | 2018-05-03 00:06 | EDPHY ---
H & P Stated Complaint: epigastric pain Time Seen by Provider: 05/03/18 00:06 HPI/ROS: HPI CHIEF COMPLAINT: Abdominal pain, chest pain HISTORY OF PRESENT ILLNESS: This is a 77-year-old female, history of metastatic breast cancer stage IV to the liver, followed at [facility], bilateral mastectomy, and hysterectomy, presents emergency room with epigastric abdominal pain and chest pain. States around 3:00 p.m. This afternoon she developed some chest tightness like a band around her chest with nausea. Additionally developed epigastric and upper abdominal pain. Nausea but no vomiting. Denies diarrhea. Denies lower abdominal pain, denies fever chills, denies productive cough or shortness of breath. Main complaint brought to the emergency room is the chest tightness and worsening increasing epigastric pain. This was worse after eating dinner around 8:00 p.m.. It is now 1230 at night. She describes her pain is 8/10 currently located epigastric region. Past Medical History: Metastatic stage IV breast cancer to liver Past Surgical History: Bilateral mastectomy, hysterectomy Social History: Denies daily use drugs alcohol tobacco Family History: Noncontributory ROS REVIEW OF SYSTEMS: 10 Systems were reviewed and negative with the exception of the elements mentioned in the history of present illness. Exam Constitutional nontoxic appearing, triage nursing summary reviewed, vital signs reviewed, awake/alert. Eyes normal conjunctivae and sclera, EOMI, PERRLA. HENT normal inspection, atraumatic, moist mucus membranes, no epistaxis, neck supple/ no meningismus, no raccoon eyes. Respiratory clear to auscultation bilaterally, normal breath sounds, no respiratory distress, no wheezing. Cardiovascular rate normal, regular rhythm, no murmur, no edema, distal pulses normal. Gastrointestinal mild tender palpation epigastric region, no rebound, no guarding, normal bowel sounds, no distension, no pulsatile mass. Genitourinary no CVA tenderness. Musculoskeletal no midline vertebral tenderness, full range of motion, no calf swelling, no tenderness of extremities, no meningismus, good pulses, neurovascularly intact. Skin pink, warm, & dry, no rash, skin atraumatic. Neurologic awake, alert and oriented x 3, AAOx3, moves all 4 extremities equally, motor intact, sensory intact, CN II-XII intact, normal cerebellar, normal vision, normal speech. Psychiatric normal mood/affect. Heme/Lymph/Immune no lymphadenopathy. Differential diagnosis includes but is not limited to: ACS, atypical chest pain , pneumothorax, pneumonia, pulmonary embolism, aortic dissection, congestive heart failure, tumor, musculoskeletal pain, esophageal pain, GERD, peptic ulcer disease, pancreatitis Medical Decision Making: Plan for this patient with epigastric pain and chest pain, EKG, full cafeteria monitor, IV establishment blood draw, troponin, rule out acute coronary syndrome, chest x-ray, ultrasound right upper quadrant. IV fluid bolus, IV Dilaudid 1 mg for pain control re-evaluate. Re-evaluation: EKG interpretation by me on record in [employer] system. Impression time of EKG 0026: Normal sinus rhythm rate of 89, no signs of acute ischemia no signs of cardiac arrhythmia no ST elevation or ST depression no T-wave abnormalities. Ultrasound shows multiple metastatic lesions in the liver. Additionally fluid is present ascites. 0218: I did go re-evaluate the patient she still having ongoing worsening abdominal pain. I reordered her IV Dilaudid. Additionally will CT scan her abdomen. However she has contrast allergy. This can be done without contrast. After long discussion with the patient she would prefer to be admitted overnight for pain control. 0256: CT scan abdomen pelvis without contrast shows large amount of metastatic disease in the liver and bony Mets. Also moderate amount of ascites and constipation. 0336: Patient still has abdominal pain. Plan will be for admission to the hospitalist service for pain control and observation to the extensive liver mets and ascites. Spoke with the hospitalist service Dr. Aleman Agrees to admit. Patient would additionally like to stay for pain control. Source: Patient - Personal History Current Tetanus/Diphtheria Vaccine: Yes Current Tetanus Diphtheria and Acellular Pertussis (TDAP): Yes Tetanus Vaccine Date: < 10 years - Medical/Surgical History Hx Asthma: No Hx Chronic Respiratory Disease: No Hx Diabetes: No Hx Cardiac Disease: Yes Hx Renal Disease: No Hx Cirrhosis: No Hx Alcoholism: No Hx HIV/AIDS: No Hx Splenectomy or Spleen Trauma: No Other PMH: HTN, Hysterectomy, double mastectomy, Breast CA-mets to liver and bones, lymphedema,hypothyroid - Social History Smoking Status: Former smoker Constitutional: Initial Vital Signs Temperature (C) 36.8 C 05/02/18 23:56 Heart Rate 93 05/02/18 23:56 Respiratory Rate 16 05/02/18 23:56 O2 Sat (%) 93 18 23:56 O2 Delivery Mode Room Air O2 (L/minute) 2 Allergies/Adverse Reactions: iopamidol [From Isovue-M] Allergy (Severe, Verified 05/02/18 23:59) Anaphylaxis lisinopril [Lisinopril] Allergy (Severe, Verified 05/02/18 23:59) Swelling/neck,face,throat azithromycin [From Zithromax Z-Cristi] Allergy (Intermediate, Verified 05/02/18 23: 59) Rash codeine [Codeine] Allergy (Intermediate, Verified 05/02/18 23:59) Vomiting erythromycin base [Erythromycin Base] Allergy (Intermediate, Verified 05/02/18 23:59) Other-Enter Comments meperidine HCl [From Demerol] Allergy (Intermediate, Verified 05/02/18 23:59) Vomiting Penicillins Allergy (Intermediate, Verified 05/02/18 23:59) Hives everolimus [From Afinitor] Allergy (Verified 05/02/18 23:59) Hives Iodine and Iodide Containing Produc Allergy (Verified 05/02/18 23:59) Home Medications: Medication Instructions Recorded Ascorbic Acid [Vitamin C 500 mg 1,000 mg PO DAILY 06/04/14 (*)] Fexofenadine HCl [Brittanie Allergy] 60 mg PO DAILY PRN 06/04/14 Multivitamins [Multivitamin (*)] 1 each PO DAILY 06/04/14 [place]-3 Fatty Acids [Fish Oil 1000 1,000 mg PO DAILY 06/04/14 mg (*)] Calcium Carbonate [Oyster Shell 500 mg PO DAILY 04/03/15 Calcium 500 mg (*)] Albuterol [Proventil Inhaler HFA 1 - 2 puffs IH DAILY PRN 06/08/17 (*)] Losartan/Hydrochlorothiazide 1 each PO DAILY 06/08/17 [Hyzaar 100-12.5 Tablet] Ondansetron Odt [Zofran Odt 4 mg 8 mg PO TID PRN 07/09/17 (*)] Glucosamine Sulfate [Glucosamine 500 mg PO DAILY 05/03/18 Sulfate 500 MG (*)] HYDROmorphone HCL [Dilaudid 2 mg 2 mg PO Q8H PRN #5 tab 05/03/18 (*)] Herbals/Supplements -Info Only 1 ea PO DAILY 05/03/18 Levothyroxine [Synthroid 100 mcg 100 mcg PO DAILY06 05/03/18 (*)] Omeprazole 40 mg PO DAILY 05/03/18 Medical Decision Making - Data Points Laboratory Results: Laboratory Results 05/03/18 00:36 05/03/18 00:36 Medications Given: Discontinued Medications Enoxaparin Sodium (Lovenox) 40 mg SC DAILY [facility] Stop: 10/30/18 08:59 Last Admin: 05/03/18 10:03 Dose: Not Given Hydromorphone HCl (Dilaudid) 1 mg IVP EDNOW ONE Stop: 05/03/18 00:22 Last Admin: 05/03/18 00:43 Dose: 1 mg Hydromorphone HCl (Dilaudid) 0.5 mg IVP EDNOW ONE Stop: 05/03/18 02:18 Last Admin: 05/03/18 03:02 Dose: 0.5 mg Sodium Chloride (Ns) 1,000 mls @ 0 mls/hr IV EDNOW ONE; Wide Open PRN Reason: Protocol Stop: 05/03/18 00:07 Last Admin: 05/03/18 00:43 Dose: 1,000 mls Sodium Chloride (Ns) 1,000 mls @ 0 mls/hr IV ONCE ONE PRN Reason: Wide Open Stop: 05/03/18 02:18 Last Admin: 05/03/18 03:02 Dose: 1,000 mls Ondansetron HCl (Zofran) 4 mg IVP EDNOW ONE Stop: 05/03/18 00:23 Last Admin: 05/03/18 00:43 Dose: 4 mg Pantoprazole Sodium (Protonix) 40 mg PO DAILY KACIE Stop: 10/30/18 08:59 Last Admin: 05/03/18 09:30 Dose: 40 mg Potassium Chloride (Klor-Con) 40 meq PO ONCE ONE Stop: 05/03/18 13:48 Last Admin: 05/03/18 13:58 Dose: 40 meq Point of Care Test Results: Chemistry 05/03/18 00:37 POC Troponin I 0.01 ng/mL ng/mL (0.00-0.08) Departure - Departure Disposition: [facility] Acute Clinical Impression: Abdominal pain Condition: Fair
[2018-05-03] MEDS ORDERED: HYDROmorphONE/DILAUDID 2 MG/ML INJ IVP ONE ×2 (00:21→02:17)
[2018-05-03] MEDS ORDERED: ONDANSETRON 4 MG/2 ML VIAL IVP ONE (00:22)
[2018-05-03 00:54] LABS: INR 1.24 (0.83-1.16); PROTIME(PATIENT) 15.8 SEC (12.0-15.0)
[2018-05-03 00:59] LABS: PLATELET COUNT 187 10^3/uL (150-400)
[2018-05-03] MEDS ORDERED: ONDANSETRON 4 MG/2 ML VIAL IVP PRN (03:41)
[2018-05-03] MEDS ORDERED: ACETAMINOPHEN 325 MG TAB PO PRN (03:41)
[2018-05-03] MEDS ORDERED: ONDANSETRON DISINTEGRATING 4 MG TAB PO PRN (03:41)
[2018-05-03] MEDS ORDERED: oxyCODONE IR 5 MG TAB PO PRN (03:41)
[2018-05-03] MEDS ORDERED: HYDROmorphone HCL 0.5 MG/0.5 ML SYR IVP PRN (03:56)
--- NOTE | 2018-05-03 04:17 | PDGENHP ---
History and Physical - Chief Complaint Abdominal pain - History of Present Illness 77 yo F w/ metastatic breast CA, HTN, and hypothyroid presents with abdominal pain. Patient experienced severe, acute onset abdominal pain this afternoon after eating a stir vazquez composed of vegetables and chicken. The pain was severe , epi-gastric, and persistent. The took some Peptobismol and tried to lie down but the pain continued so she came to the ED. She is fairly comfortable now after pain medication. In the ED RUQ U/S was negative for gallstones or acute cholecystitis and CT w/o contrast revealed mild-moderate ascites and known liver metastases. No obstruction or free air was seen. Patient also tells me she experiences some band like chest pain and palpitations earlier in the day. This has resolved now. Case discussed with ED physician Dr. Menon; previous records reviewed in EMR. History Information - Allergies/Home Medication List Allergies/Adverse Reactions: iopamidol [From Isovue-M] Allergy (Severe, Verified 05/02/18 23:59) Anaphylaxis lisinopril [Lisinopril] Allergy (Severe, Verified 05/02/18 23:59) Swelling/neck,face,throat azithromycin [From Zithromax Z-Cristi] Allergy (Intermediate, Verified 05/02/18 23: 59) Rash codeine [Codeine] Allergy (Intermediate, Verified 05/02/18 23:59) Vomiting erythromycin base [Erythromycin Base] Allergy (Intermediate, Verified 05/02/18 23:59) Other-Enter Comments meperidine HCl [From Demerol] Allergy (Intermediate, Verified 05/02/18 23:59) Vomiting Penicillins Allergy (Intermediate, Verified 05/02/18 23:59) Hives everolimus [From Afinitor] Allergy (Verified 05/02/18 23:59) Hives Iodine and Iodide Containing Produc Allergy (Verified 05/02/18 23:59) Home Medications: Ascorbic Acid [Vitamin C 500 mg (*)] 1,000 mg PO DAILY 06/04/14 [Last Taken ] Aspirin [Aspirin 81mg (*)] 81 mg PO DAILY 06/04/14 [Last Taken 06/07/17] Fexofenadine HCl [Brittanie Allergy] 60 mg PO DAILY PRN 06/04/14 [Last Taken 04/03] Levothyroxine [Synthroid 112 mcg (*)] 112 mcg PO DAILY06 06/04/14 [Last Taken ] Multivitamins [Multivitamin (*)] 1 each PO DAILY 06/04/14 [Last Taken 06/07/17] [place]-3 Fatty Acids [Fish Oil 1000 mg (*)] 1,000 mg PO DAILY 06/04/14 [Last Taken 06/07/17] Calcium Carbonate [Oyster Shell Calcium 500 mg (*)] 500 mg PO DAILY 04/03/15 [ Last Taken 06/01/17] Albuterol [Proventil Inhaler HFA (*)] 1 - 2 puffs IH DAILY PRN 06/08/17 [Last Taken Unknown] Losartan/Hydrochlorothiazide [Hyzaar 100-12.5 Tablet] 1 each PO DAILY 06/08/17 [ Last Taken 06/07/17] Xeloda 07/09/17 [Last Taken Unknown] Zofran 07/09/17 [Last Taken Unknown] Gemzar 05/02/18 [Last Taken Unknown] I have personally reviewed and updated: family history, medical history - Past Medical History cancer (Metastatic breast (bone, liver)), hypertension - Surgical History Reports: hysterectomy - Family History Positive for: CAD Additional family history: UC - Social History Smoking Status: Former smoker Review of Systems Review of Systems: ROS: 10pt was reviewed & negative except for what was stated in HPI & below Physical Exam Physical Exam: Temp Pulse Resp BP Pulse Ox 36.8 C 92 16 140/70 H 96 05/02/18 23:56 05/03/18 03:04 05/03/18 03:04 05/03/18 00:10 05/03/18 03:07 Constitutional: no apparent distress, not in pain Eyes: PERRL, EOMI Ears, Nose, Mouth, Throat: moist mucous membranes, no oral mucosal ulcers Cardiovascular: regular rate and rhythym, no murmur, rub, or gallop Respiratory: no respiratory distress, clear to auscultation Gastrointestinal: normoactive bowel sounds, soft, non-tender abdomen, distension Skin: warm, normal color, other (Port R upper chest) Musculoskeletal: full muscle strength, no muscle tenderness Neurologic: AAOx3, CN II-XII Intact Psychiatric: interacting appropriately, not anxious Lab Data & Imaging Review 05/03/18 00:36 05/03/18 00:36 WBC 5.87 10^3/uL (3.80-9.50) 05/03/18 00:36 RBC 3.17 10^6/uL (4.18-5.33) L 05/03/18 00:36 Hgb 11.1 g/dL (12.6-16.3) L 05/03/18 00:36 Hct 30.5 % (38.0-47.0) L 05/03/18 00:36 MCV 96.2 fL (81.5-99.8) 05/03/18 00:36 MCH 35.0 pg (27.9-34.1) H 05/03/18 00:36 MCHC 36.4 g/dL (32.4-36.7) 05/03/18 00:36 RDW 22.6 % (11.5-15.2) H 05/03/18 00:36 Plt Count 187 10^3/uL (150-400) 05/03/18 00:36 MPV 10.4 fL (8.7-11.7) 05/03/18 00:36 Neut % (Auto) 49.1 % (39.3-74.2) 05/03/18 00:36 Lymph % (Auto) 30.3 % (15.0-45.0) 05/03/18 00:36 [place] % (Auto) 17.7 % (4.5-13.0) H 05/03/18 00:36 Eos % (Auto) 1.0 % (0.6-7.6) 05/03/18 00:36 Baso % (Auto) 0.9 % (0.3-1.7) 05/03/18 00:36 Nucleat RBC Rel Count 1.4 % (0.0-0.2) H 05/03/18 00:36 Absolute Neuts (auto) 2.88 10^3/uL (1.70-6.50) 05/03/18 00:36 Absolute Lymphs (auto) 1.78 10^3/uL (1.00-3.00) 05/03/18 00:36 Absolute Monos (auto) 1.04 10^3/uL (0.30-0.80) H 05/03/18 00:36 Absolute Eos (auto) 0.06 10^3/uL (0.03-0.40) 05/03/18 00:36 Absolute Basos (auto) 0.05 10^3/uL (0.02-0.10) 05/03/18 00:36 Absolute Nucleated RBC 0.08 10^3/uL (0-0.01) H 05/03/18 00:36 Immature Gran % 1.0 % (0.0-1.1) 05/03/18 00:36 Immature Gran # 0.06 10^3/uL (0.00-0.10) 05/03/18 00:36 Platelet Estimate ADEQUATE (ADEQ) 05/03/18 00:36 Polychromasia 1+ H 05/03/18 00:36 Oval Macrocytes 1+ H 05/03/18 00:36 PT 15.8 SEC (12.0-15.0) H 05/03/18 00:36 INR 1.24 (0.83-1.16) H 05/03/18 00:36 APTT 29.3 SEC (23.0-38.0) 05/03/18 00:36 VBG Lactic Acid 1.8 mmol/L (0.7-2.1) 05/03/18 00:36 Sodium 132 mEq/L (135-145) L 05/03/18 00:36 Potassium 3.5 mEq/L (3.3-5.0) 05/03/18 00:36 Chloride 100 mEq/L (97-110) 05/03/18 00:36 Carbon Dioxide 23 mEq/l (22-31) 05/03/18 00:36 Anion Gap 9 mEq/L (8-16) 05/03/18 00:36 BUN 9 mg/dL (7-23) 05/03/18 00:36 Creatinine 0.7 mg/dL (0.6-1.0) 05/03/18 00:36 Estimated GFR > 60 05/03/18 00:36 Glucose 126 mg/dL (70-100) H 05/03/18 00:36 Calcium 9.4 mg/dL (8.5-10.4) 05/03/18 00:36 Total Bilirubin 2.6 mg/dL (0.1-1.4) H 05/03/18 00:36 Conjugated Bilirubin 1.5 mg/dL (0.0-0.5) H 05/03/18 00:36 Unconjugated Bilirubin 1.1 mg/dL (0.0-1.1) 05/03/18 00:36 AST 164 IU/L (14-46) H 05/03/18 00:36 ALT 87 IU/L (9-52) H 05/03/18 00:36 Alkaline Phosphatase 338 IU/L (38-126) H 05/03/18 00:36 POC Troponin I 0.01 ng/mL (0.00-0.08) 05/03/18 00:37 Total Protein 5.2 g/dL (6.3-8.2) L 05/03/18 00:36 Albumin 2.8 g/dL (3.5-5.0) L 05/03/18 00:36 Lipase 100 IU/L (23-300) 05/03/18 00:36 Imaging Review: U/S Prelim: DIFFUSE LIVER METS MILD ASCITIS NO GALLSTONES DISCUSSED WITH MICHI AT 0125 CT prelim: DIFFUSE LIVER METS AND CIRRHOSIS DIFFUSE OSSEOUS METS SMALL TO MOD ASCITES CONSTIPATION NO OBSTRUCTION DISCUSSED WITH DR BORDEN AT 0250 Assessment & Plan Assessment: 77 yo F w/ metastatic breast CA, HTN, and hypothyroidism presents with abdominal pain. Plan: 1. Abdominal pain - Unclear etiology; likely multifactorial form ascites, liver metastases, constipation, and possibly gastritis/PUD noting NSAID use at home for pain relief. Work-up in ED was negative for gallstones, cholecystitis, and obstruction. Abdominal exam is reassuring and she feels better after pain medication. - Admit for observation - Dilaudid PO/IV for pain control (states this is one of few opiates that she tolerates) - Will start PPI - If pain is persistent or worsens, would be reasonable to rule out SBO and PVT 2. Chest pain - Patient had brief chest tightness earlier in the day prior to abdominal pain. I feel it is unlikely this is cardiac in origin. She had a normal TTE in 2016 and normal LHC in 2013. She has no prior cardiac history. - Monitor on telemetry overnight, trend cardiac enzymes - If above unremarkable, no further work-up indicated 3. Metastatic breast CA - With metastasis to liver and bone; last chemotherapy on 04/20. Per patient, disease is progressing at this time despite treatment. - Followed at [facility] 4. HTN - Continue home medications pending reconciliation 5. Hypothyroid - Continue LTX Diet - Regular Code - Full Ppx - LMWH Dispo - Admit under observation status
[2018-05-03] MEDS ORDERED: HYDROmorphONE/DILAUDID 2 MG TAB PO PRN (04:21)
--- NOTE | 2018-05-03 07:22 | CPEKG ---
Test Reason : OPEN Blood Pressure : / mmHG Vent. Rate : 089 BPM Atrial Rate : 090 BPM P-R Int : 140 ms QRS Dur : 092 ms QT Int : 370 ms P-R-T Axes : 080 054 072 degrees QTc Int : 451 ms Sinus rhythm Confirmed by Austen Montes ([id number]) on 05/03/2018 7:21:49 AM Referred By: Confirmed By:Austen Montes
[2018-05-03] MEDS ORDERED: ENOXAPARIN 40 MG/0.4 ML SYR SC SCH (09:00)
[2018-05-03] MEDS ORDERED: PANTOPRAZOLE SODIUM 40 MG TAB PO SCH (09:00)
[2018-05-03 12:09] VITALS: BP 118/68
[2018-05-03] MEDS ORDERED: POTASSIUM CL 20 MEQ TAB PO ONE (13:47)
--- NOTE | 2018-05-03 14:17 | GDS ---
HISTORY OF PRESENT ILLNESS: This is a pleasant 77-year-old female with metastatic breast cancer with disease to bones and liver, hypertension, hypothyroidism, presenting with abdominal pain. She devel oped severe acute onset of epigastric pain after eating homemade stir vazquez dinner. It was sharp and p ressure-like without radiation associated shortness of breath, nausea, or vomiting. She took Pepto-B ismol and tried to lie down, but the pain continued, thus came to the ER. She also complained of a bandlike pressure through her upper chest for intermittently for the last co uple days, did not change with activity. No radiation or other associated symptoms. In the ER, righ t upper quadrant ultrasound was negative for gallstones or cholecystitis and CT showed mild to modera te ascites and no liver metastatic disease. She states that her cancer has progressed despite chemot herapy. She is followed at [facility]. HOSPITAL COURSE BY PROBLEM: 1. Acute abdominal pain, unclear etiology may have been GERD versus ascites or liver METS. Was evid ence of constipation on CT. Pain was resolved after 2 doses of Dilaudid. She is without pain this m orning. She has been taking NSAIDs at home, so this may contribute to some gastritis. Recommend con tinuing PPI. Discussed options for the ascites including Lasix or paracentesis. She would like to h old off on both of these. She is to follow up with her PCP and oncologist this week. 2. Chest pain: Associated with palpitations. She had a normal echocardiogram 2016 and normal rox terization in . Pain is no longer present. There was no associated nausea, vomiting, shortness of breath. Troponins and EKGs were negative x2. 3. PVCs. Replete potassium. Check magnesium. 4. Metastatic breast cancer: She is on her 7th line of chemotherapy and has had quite a few issues. I had a lengthy conversation with both she and her recommending outpatient palliative care, which she was interested in. She will follow up with her PCP tomorrow to have a referral. 5. Hypertension. Resume home medications. 6. Hypothyroidism, levothyroxine. DISPOSITION: Patient is stable for discharge home. MEDICATIONS: P.r.n. Dilaudid if needed. RETURN PRECAUTIONS: Chest pain, shortness of breath, fevers, increased abdominal pain. FOLLOWUP: 1. Her primary oncologist at [facility]. 2. Primary care physician. 3. Referral for palliative care. PHYSICAL EXAMINATION: VITAL SIGNS: Temperature 36.4, blood pressure 118/68, heart rate in the 80s, respirations 21, 96% on room air. GENERAL: She is well appearing, no acute distress, smiling. HEEN T: PERRLA. Moist mucous membranes. CV: Regular rate and rhythm. LUNGS: Clear. ABDOMEN: Mildly distended but soft. No tenderness. CHEST: No lower extremity edema or reproducible chest pain. G U: No Strickland. Musculoskeletal 5/5 upper lower and extremity strength. NEURO: 2 through 12 intact. PSYCH: Alert and oriented x3. TIME SPENT ON DISCHARGE: Greater than 30 minutes counseling, patient has been on palliative care. Kaylin cruz. /[id number]/[id number]
== END 2018-05-03 15:15 | disposition home or self-care (01) ==
LOC: F3E 05-03 06:16
PROVIDERS: ADMIT Student in an Organized Health Care Education/Training Program; ATTEND Internal Medicine
DX: R10.13 Epigastric pain (principal); R07.9 Chest pain, unspecified; C50.919 Malignant neoplasm of unspecified site of unspecified female breast; C78.7 Secondary malignant neoplasm of liver and intrahepatic bile duct; I10 Essential (primary) hypertension; C79.51 Secondary malignant neoplasm of bone; E03.9 Hypothyroidism, unspecified; Z90.13 Acquired absence of bilateral breasts and nipples; E86.9 Volume depletion, unspecified
CPT/HCPCS: 71045; 74176; 76705; 93005; 96361; 96374; 96375; 96376; 99285; G0378; J1170; J2405; 84484-PO; J1650